=== PATIENT | female | born 2000 | race Caucasian/White ===

== ENCOUNTER 2024-08-30 06:50 | Emergency (ER) | payer BC, SELFPAY ==
[2024-08-30 06:53] VITALS: BP 145/92
--- NOTE | 2024-08-30 07:35 | ED.GENMED ---
History of Present Illness
General
Chief Complaint: Ear Problem
Source: patient
Exam Limitations: none
Time Seen by Provider: 08/30/24 07:25
History of Present Illness
History of Present Illness:
24yoF with a history of anxiety presenting with her mother for evaluation of bilateral ear pain. Symptoms began yesterday. She reports severe pressure in both of her ears which feels like a 'cotton ball' is stuck in the ears. She has also been
experiencing some clear drainage from both ears. The ear pressure worsens with jaw opening/closing. She started applying OTC lidocaine drops into her ears yesterday for her pain. She was unable to sleep last night due to her symptoms. She was
swimming in a salt water pool 5 days ago. No trauma, fevers, nasal congestion, cough, vomiting, diarrhea.
Phy Exam
General Physical Exam
General Presentation: well appearing and no apparent distress
General Skin: warm and dry
General Habitus: normal
General Mental: alert
ENT Exam
ENT Exam: pharynx normal, neck supple, normocephalic and other (Bilateral ear canals are edematous with debris and clear drainage. +Tenderness to palpation of tragus. Unable to visualize TMs. No mastoid erythema/tenderness. )
Cardiovascular Exam
Cardiovascular Exam: regular rate/rhythm
Pulmonary Exam
Pulmonary Exam: lungs clear, no respiratory distress, no rales, no crackles, no rhonchi and no wheezing
Neurological Exam
Neurological Exam: alert
[place] Coma Scale
Eye Opening: Spontaneous
Verbal Response: Oriented
Motor Response: Obeys Commands
GCS Total Score: 15
Skin Exam
Skin Exam: normal color and warm/dry
Psychiatric Exam
Psychiatric Exam: normal mood/affect
Course
Vital Signs
Initial and Last Documented VS:
Initial Vital Signs
Temp Pulse Resp BP Pulse Ox
100.3 F 121 20 145/92 95
08/30/24 06:53 08/30/24 06:53 08/30/24 06:53 08/30/24 06:53 08/30/24 06:53
Last Documented Vital Signs
Temp Pulse Resp BP Pulse Ox
100.3 F 121 20 145/92 95
08/30/24 06:53 08/30/24 06:53 08/30/24 06:53 08/30/24 06:53 08/30/24 07:37
MDM/Problems Addressed
Differential Diagnosis Includes:
24yoF here with bilateral ear pain, pressure, and drainage x 1 day. Swimming in a pool 5 days ago. Temp 100.3 on arrival although she denies fevers. On exam, both ear canals are edematous with debris consistent with otitis externa. Unable to
visualize TM so cannot exclude concomitant otitis media. No clinical evidence of malignant otitis externa or mastoiditis. Prescriptions provided for Ciprodex gtts as well as Augmentin. Supportive care discussed and patient advised to avoid
water/Q-tips. Advised f/u with PCP and ED return precautions reviewed.
*Pulse Oximetry
SaO2: 95
Oxygen Mode of Delivery: Room air
Patient hypoxic: no (95%)
*Critical Care Note
Total Time (30-74mins, 75-104mins- exclusive of procedures): Not Applicable
ED Attending Note
-
Portions of this chart may have been created with voice recognition software.� Occasional wrong word or��sound alike� substitutions may have occurred due to the inherent limitations of voice recognition software.
Discharge Plan
Departure
Patient Disposition: Home (Routine Discharge)
Date of Disposition: 08/30/24
Time of Disposition: 07:37
Patient with high blood pressure during this ER visit?: Yes
Discharge Problem:
Acute Otitis Externa
Instructions: Outer Ear Infection (DC)
Prescriptions:
New
ciprofloxacin-dexamethasone 0.3-0.1 % drops,suspension
4 drp EACH EAR BID 7 Days Qty: 7.5 0RF
amoxicillin-pot clavulanate 875-125 mg tablet
1 tab PO BID Qty: 14 0RF
Activity Restrictions/Additional Instructions:
Apply antibiotic ear drops and take antibiotics as prescribed. Do not put anything else in the ears (No Q-tips). Take ibuprofen 600mg every 6 hours as needed for pain.
Please follow-up with your family doctor next week. Return to the ER with any worsening symptoms or fevers.
Interventions
Interventions:
*Risk Screen - Suicide Last Done: 08/30/24 06:57
*Neglect/Abuse Screening Last Done: 08/30/24 06:57
Discharge Date and Time
Print Language: GUINEAN
== END 2024-08-30 07:51 | disposition home or self-care (01) ==
LOC: EMR 06:50
PROVIDERS: EMERGENCY PHYSICIAN Student in an Organized Health Care Education/Training Program; FAMILY PHYSICIAN Family Medicine
DX: H60.503 Unspecified acute noninfective otitis externa, bilateral (principal)
CPT/HCPCS: 99282